=== PATIENT | female | born 1950 | race Caucasian/White ===

== ENCOUNTER 2019-11-29 16:25 | Inpatient (IN) | payer MEDICARE, SELFPAY ==
[2019-11-29] VITALS (9 sets, daily range): BP systolic 137–158; BP diastolic 81–104; PULSE 64–81; RESP 13–19; TEMP 36.4–36.9; O2SAT 92–97; BMI 39.6
--- NOTE | ~2019-11-29 | CT_ITS ---
EXAMINATION: CT cervical spine wo con DATE: 11/29/2019 17:41 INDICATION: Multiple sclerosis with fall and progressive leg weakness. TECHNIQUE: Computed tomography (CT) of the cervical spine was performed without intravenous contrast. Automated exposure control and iterative reconstruction technique were employed. The dose-length pro duct was 472.36 mGy-cm. COMPARISON: None FINDINGS: Any 5 degree cervical levoscoliosis. 1-2 mm anterolisthesis of C6 on C7. Vertebral body heights are n ormal. Disc heights are normal. Cervical soft tissues are unremarkable. Mastoid air cells, middle ear cavities and visualized portions of the paranasal sinuses, airway and apices of the lungs are clear. The following disc levels are specifically discussed: C2-C3: Disc is bulging. There is mild right uncovertebral joint osteoarthritis. There is moderate lef t and severe right facet joint osteoarthritis. There is minimal right neural foraminal stenosis. Ther e is mild central canal stenosis. C3-C4: Disc is bulging. There is mild bilateral uncovertebral joint osteoarthritis. There is moderate left and severe right facet joint osteoarthritis. There is no neural foraminal stenosis. There is mi ld central canal stenosis. C4-C5: Small posterior disc osteophyte complex. There is mild to moderate bilateral uncovertebral marv nt osteoarthritis. There is moderate left and severe right facet joint osteoarthritis. There is mild right neural foraminal stenosis. There is mild central canal stenosis. C5-C6: Disc is mildly bulging. There is mild right and minimal left uncovertebral joint osteoarthriti s. There is moderate left and severe right facet joint osteoarthritis. There is mild right neural for aminal stenosis. There is no central canal stenosis. C6-C7: Disc is bulging. There is mild bilateral uncovertebral joint osteoarthritis. There is moderate left and severe right facet joint osteoarthritis. There is no neural foraminal stenosis. There is mi nimal central canal stenosis. C7-T1: The disc does not extend beyond the endplate margin. There is no uncovertebral joint osteoarth ritis. There is moderate left and severe right facet joint osteoarthritis. There is mild right neural foraminal stenosis. There is no central canal stenosis. IMPRESSION: 1. 25 degrees cervical levoscoliosis with multilevel moderate left-sided and severe right-sided facet osteoarthritis. No acute osseous abnormality. Reviewed, dictated and finalized at location A. IMPRESSION: 1. 25 degrees cervical levoscoliosis with multilevel moderate left-sided and se negrito right-sided facet osteoarthritis. No acute osseous abnormality.
--- NOTE | ~2019-11-29 | CT_ITS ---
EXAMINATION: CT lumbar spine wo con DATE: 11/29/2019 17:41 INDICATION: Multiple sclerosis post fall with progressive leg weakness and bladder issues. TECHNIQUE: Computed tomography (CT) of the lumbar spine was performed without intravenous contrast. A utomated exposure control and iterative reconstruction technique were employed. The dose-length produ ct was 1171.38 mGy-cm. COMPARISON: Lumbar spine radiographs dated 01/17/2013 FINDINGS: 45 degree lumbar levorotoscoliosis measured between L1 and L4. L5 spondylolysis with bilateral pars i ntra-articular is defects and 7 mm anterolisthesis with respect to S1. Lumbar vertebral body heights are normal. No fracture. Severe right-sided disc height loss at L2-L3 and L3-L4. Mild right-sided dis c height loss at L1-L2. Mild disc height loss at L4-L5 and severe left-sided disc height loss at L5-S 1. There is a smaller caliber likely catheter for intrathecal pain pump which originates at the right side of the field of imaging and extends into the central canal between the left-sided lamina at L2- L3 and extending cephalad with distal tip at the level of T12. There is a larger caliber spinal stimu lator lead arising at the left side of the itsov-tt-mmei and dividing into 2 leads which enter the ce ntral canal between the spinous processes of T12-L1 and T11-T12 extends cephalad along the central ca nal beyond the cephalad margin of the [id number] which is at the T9-T10 disc space. Prominent dive rticulosis along the sigmoid and visualized descending colon without adjacent inflammatory change to suggest diverticulitis. Paravertebral soft tissues are unremarkable. The following disc levels are sp ecifically discussed: T12-L1: There is severe bilateral facet joint osteoarthritis. There is no neural foraminal stenosis. There is no central canal stenosis. L1-L2: Disc is bulging. There is moderate left and severe right facet joint osteoarthritis. There is mild right neural foraminal stenosis. There is mild central canal stenosis. L2-L3: Disc is bulging. There is altered left and moderate right facet joint osteoarthritis. There is moderate right neural foraminal stenosis. There is mild central canal stenosis. L3-L4: Disc is bulging. There is moderate left and severe right facet joint osteoarthritis. There is mild left and moderate right neural foraminal stenosis. There is moderate central canal stenosis. L4-L5: Disc is bulging. There is severe bilateral facet joint osteoarthritis. There is moderate bilat eral neural foraminal stenosis. There is moderate central canal stenosis. L5-S1: Disc is bulging. There is severe bilateral facet joint osteoarthritis along with bilateral par s interarticularis defects. There is moderate to severe bilateral neural foraminal stenosis. There is mild central canal stenosis. IMPRESSION: 1. 45 degrees lumbar levorotoscoliosis with severe spondylosis. 2. 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 Reviewed, dictated and finalized at location A. IMPRESSION: 1. 45 degrees lumbar levorotoscoliosis with severe spondylosis. 2. L5 spondylolysis with bilateral pars intra-articular is defects and 7 mm ant erolisthesis on S1.
--- NOTE | ~2019-11-29 | XR_ITS ---
EXAMINATION: XR chest 1V portable DATE: 11/29/2019 17:47 INDICATION: COPD presenting with shortness of breath post fall TECHNIQUE: frontal view of the chest was obtained. COMPARISON: None FINDINGS: Mild atelectasis at the right lung base. No pulmonary edema, pleural effusion or pneumothorax. Arch s ize is normal. Severe thoracic dextroscoliosis. Spinal stimulator leads project over the central christ l the lower thoracic spine. Prominent degenerative change at the bilateral shoulders including chroni c left rotator cuff tear. IMPRESSION: 1. Mild right basilar atelectasis. Reviewed, dictated and finalized at location A.
[2019-11-29 17:11] LABS: Add Urine Microscopic? NO; Appearance Urine Clear (Clear); Bilirubin Urine Negative (Negative); Blood Urine Negative (Negative); Color Urine Colorless (Yellow); Glucose Urine UA Negative (Negative); Ketones Urine Negative (Negative); Leukocyte Esterase Ur Negative LEU/UL (Negative); Nitrate Urine Negative (Negative); Protein Urine Negative (Negative); Specific Grav Ur 1.008 (1.001-1.035); Urobilinogen Urine Negative mg/dL (<2.0)
--- NOTE | 2019-11-29 17:16 | ED.GENADULT ---
HPI - General Adult General Chief complaint: Unspecified <NICOLE Tong Last Filed: 11/29/19 19:24> Stated complaint: hx MS/bladder issue, legs getting worker <NICOLE Tong Last Filed: 11/29/19 19:24> Time Seen by Provider: 11/29/19 17:09 <NICOLE Tong Last Filed: 11/29/19 19:24> Source: patient and family <NICOLE Tong Last Filed: 11/29/19 19:24> Mode of arrival: ambulatory <NICOLE Tong Last Filed: 11/29/19 19:24> Limitations: no limitations <NICOLE Tong Last Filed: 11/29/19 19:24> History of Present Illness HPI narrative: Patient is a 69-year-old female who presents to emergency department for evaluation of gradually worsening weakness and gait instability patient with history of MS lives by herself patient has had progressive weakness has been unable to partake in any of her normal therapy secondary to COVID patient fell 2 days ago secondary to gait instability patient was on the ground for a short period her family had to come and assist her patient on arrival notes aching pain to the lower back from the fall has history of chronic low back pain also noting mild pain of the neck denies any recent illness has history of MS and gait instability <NICOLE Tong Last Filed: 11/29/19 19:24> Related Data Home medications: Home Medications Medication Instructions Recorded Confirmed Metamucil 2 g PO DAILY 11/29/19 11/29/19 tydhl-q-[id number] [Beano] 800 unit PO DAILY PRN 11/29/19 11/29/19 dalfampridine [Ampyra] 10 mg PO BID 11/29/19 11/29/19 teriflunomide [Aubagio] 14 mg PO DAILY 11/29/19 11/29/19 <NICOLE Tong Last Filed: 11/29/19 19:24> Allergies/adverse reactions: Allergies Allergy/AdvReac Type Severity Reaction Status Date / Time No Known Allergies Allergy Unknown Verified 01/04/12 16:16 <NICOLE Tong Last Filed: 11/29/19 19:24> Review of Systems Review of Systems: All systems reviewed & are unremarkable except as noted in HPI and below <Tavo Allan PA-C - Last Filed: 11/29/19 19:24> PMFSH Past Medical History Medical History: Medical History Chronic back pain Diverticular disease Multiple sclerosis <Tavo Allan PA-C - Last Filed: 11/29/19 19:24> Surgical History Surgical History: Surgical History History of orthopedic surgery S/P insertion of spinal cord stimulator <Tavo Allan PA-C - Last Filed: 11/29/19 19:24> Family History Family History: Family History Mother Cancer Father Cancer Sibling Cancer Tuberculosis Enlarged heart <Tavo Allan PA-C - Last Filed: 11/29/19 19:24> Social History Social History: Social History Smoking packs per day: 0.5 Smoking cigarettes per day: 10.0 Smoking status: Former smoker Alcohol intake: former Substance use: never Last use: Years since last drink. No substance use. Gender identity (if verbalized by the patient): Female Spiritual care concerns: No <NICOLE Tong Last Filed: 11/29/19 19:24> Exam Narrative: Exam Narrative: GENERAL: Well-appearing, well-nourished, and in no acute distress. HEAD: Normocephalic, atraumatic. EYES: PERRLA and EOMI. ENT: Nares clear, no rhinorrhea or epistaxis. Mucous membranes moist. Oropharynx without tonsillar hypertrophy exudate or other lesions. NECK: Supple. No adenopathy or masses. CHEST: Clear to auscultation. No respiratory distress. No wheezes rales or rhonchi HEART: Regular rate and rhythm. No murmur heard. Normal peripheral pulses. ABDOMEN: Soft, nontender, nondistended EXTREMITIES: Patient with tenderness of the lumbar spine no deformities noted no midline cervical or
[2019-11-29 17:23] LABS: Basophils Absolute Auto 0.1 K/mm3 (0.0-0.1); Basophils Percent Auto 0.9 % (0.2-1.2); Eosinophils Absolute Auto 0.1 K/mm3 (0-0.3); Eosinophils Percent Auto 1.2 % (0-4.4); Hemoglobin 13.4 g/dL (12.0-15.0); Immature Granulocyte Absolute 0.02 K/mm3 (0.00-0.031); Immature Granulocyte Percent A 0.3 % (0-0.5); Lymphocytes Absolute Auto 0.82 K/mm3 (0.9-3.2); Lymphocytes Percent Auto 12.5 % (18.3-44.2); Mean Corpuscular HGB Conc 31.2 g/dl (32-36); Mean Corpuscular Hemoglobin 27.7 pg (26-34); Mean Platelet Volume 11.3 fl (7.4-10.4); Monocytes Absolute Auto 0.6 K/mm3 (0.1-0.6); Monocytes Percent Auto 9.5 % (2.6-8.5); Neutrophils Percent Auto 75.6 % (45.5-73.1); Platelet Count Result 243 k/mm3 (150-375); Red Blood Count 4.83 M/mm3 (4.2-5.4); Red Cell Distribution Width 15.1 % (11.5-14.5); White Blood Count 6.6 K/mm3 (4.5-10.0)
[2019-11-29 17:35] LABS: Alanine Aminotransferase 93 U/L (4-35); Albumin Level 4.2 g/dL (3.5-5.1); Alkaline Phosphatase 69 U/L (38-126); Anion Gap 7 mmol/L (8-16); Aspartate Amino Transferase 52 U/L (14-36); Bilirubin,Total 0.3 mg/dL (0.2-1.3); Blood Urea Nitrogen 15 mg/dL (7-17); Calcium 9.1 mg/dL (8.4-10.2); Carbon Dioxide 28 mmol/L (22-30); Chloride 103 mmol/L (98-107); Creatine Kinase 69 U/L (30-135); Estimated CRCL calculation 81 ml/min; Estimated Glomerular Filt Rate > 60; Glucose 94 mg/dL (65-105); Potassium 4.4 mmol/L (3.4-5.0); Sodium 138 mmol/L (137-145)
--- NOTE | 2019-11-29 19:37 | PM.IMHP ---
H&P: HPI History of Present Illness Date/Time: 11/29/19 19:37 Chief complaint: MS exacerbation Narrative: This is a pleasant 69 year old female with known multiple sclerosis who lives alone and presented to the hospital with a complaint of increased generalized weakness, increased falls, and difficulty with ADLs. The patient is known to have home health that comes for a few hours a day to help her. She has not been able to undergo therapy secondary to coronavirus. She has had increased difficulty transferring herself from the toilet to her electric scooter. Two days ago she fell and her daughter had to come over to help her off the ground. The patient has a history of long standing chronic back pain and has a spinal stimulator and a pain pump implanted. She normally sees Neurology at [facility]. She denies any fevers, chills, shortness of breath, cough, sore throat, chest pain, palpitations, headache, blurry vision, slurred speech, worsening numbness, tingling or focal weakness. She has also noticed over the past few days that she has had increased urination and feels like her bladder just isn't emptying. She has been experiencing urge incontinence and remarks that last night she laid in a dirty diaper all night as there was no one to change her. She denies being on any steroids recently. We have been asked to admit the patient to the hospital for possible placement. Review of Systems Review of Systems: All systems reviewed & are unremarkable except as noted in HPI and below PMFSH Past Medical History Medical History Chronic back pain Diverticular disease Multiple sclerosis Surgical History Surgical History History of orthopedic surgery S/P insertion of spinal cord stimulator Family History Family History Mother Cancer Father Cancer Sibling Cancer Tuberculosis Enlarged heart Social History Social History Smoking packs per day: 0.5 Smoking cigarettes per day: 10.0 Smoking status: Former smoker Alcohol intake: former Substance use: never Last use: Years since last drink. No substance use. Gender identity (if verbalized by the patient): Female Spiritual care concerns: No Meds Home Medications and Allergies Home Medications Medication Instructions Recorded Confirmed Type Metamucil 2 g PO DAILY 11/29/19 11/29/19 History lcjso-v-qfewcvqfugurt [Beano] 800 unit PO DAILY PRN 11/29/19 11/29/19 History dalfampridine [Ampyra] 10 mg PO BID 11/29/19 11/29/19 History teriflunomide [Aubagio] 14 mg PO DAILY 11/29/19 11/29/19 History Allergies Allergy/AdvReac Type Severity Reaction Status Date / Time No Known Allergies Allergy Unknown Verified 01/04/12 16:16 Vital Signs Vital Signs - 24 hr 11/29/19 16:33 11/29/19 17:55 11/29/19 17:57 Temperature 36.9 C Pulse Rate 67 64 72 Respiratory Rate 18 16 Blood Pressure 149/104 H 154/94 H Pulse Oximetry 95 97 11/29/19 18:52 Temperature Pulse Rate 81 Respiratory Rate 16 Blood Pressure 158/90 H Pulse Oximetry 97 Exam Const: General: cooperative, no acute distress, alert, awake and ill appearing chronically Nutritional Appearance: obese Orientation/consciousness: patient oriented x3 HENMT: Head: normal to inspection General nose exam: Normal external nose present Face and sinus: normal facial exam Mouth: Yes Normal oral and palatal mucosa present and Yes oropharynx normal Eyes: Pupils: Equal, round and reactive pupils present EOM: EOMs intact bilaterally Neck: Neck: supple and no JVD Thyroid: thyroid normal Lymphatic: lymphadenopathy not noted Resp: Effort & Inspection: normal respiratory effort Auscultation: clear to auscultation bilaterally Cardio: Rate: regular rate Rhythm: regular rhythm
--- NOTE | 2019-11-29 20:30 | ADMGEN ---
This patient, Marietta Pruett, was admitted to Medical Room 341-01. Patient/family oriented to hospital policies and general routines including ID bracelet, bed and alarms, visiting hours, pain management, procedures, bathroom and other care routines, personal items, smoking policy, room service/diet, and visiting hours. Valuables list has been completed. Information on how to activate the Rapid Response Team has been discussed. Patient/Family are encouraged to report perceived risks to care and to ask questions if they do not understand what they are told or what they should do.
[2019-11-29] MEDS: LACTATED RINGERS 1,000 ML 75 ML IV CONT (20:41)
[2019-11-29] MEDS: ENOXAPARIN 40 MG/0.4 ML SYRINGE SUB-Q (21:29)
[2019-11-29] MEDS: FAMOTIDINE 20 MG/2 ML VIAL IV PUSH (21:29)
[2019-11-30 04:57] VITALS: BP 132/59; PULSE 78; RESP 16; TEMP 36.4; O2SAT 99
[2019-11-30 05:26] LABS: Basophils Absolute Auto 0.1 K/mm3 (0.0-0.1); Basophils Percent Auto 1.8 % (0.2-1.2); Eosinophils Absolute Auto 0.1 K/mm3 (0-0.3); Eosinophils Percent Auto 2.3 % (0-4.4); Hematocrit 42.2 % (37.0-47.0); Hemoglobin 13.2 g/dL (12.0-15.0); Immature Granulocyte Absolute 0.01 K/mm3 (0.00-0.031); Immature Granulocyte Percent A 0.3 % (0-0.5); Lymphocytes Absolute Auto 0.74 K/mm3 (0.9-3.2); Lymphocytes Percent Auto 18.7 % (18.3-44.2); Mean Corpuscular HGB Conc 31.3 g/dl (32-36); Mean Corpuscular Volume 89.6 fl (80-100); Mean Platelet Volume 11.6 fl (7.4-10.4); Monocytes Absolute Auto 0.5 K/mm3 (0.1-0.6); Monocytes Percent Auto 13.7 % (2.6-8.5); Neutrophils Absolute Auto 2.5 K/mm3 (1.3-6.7); Neutrophils Percent Auto 63.2 % (45.5-73.1); Platelet Count Result 240 k/mm3 (150-375); Red Blood Count 4.71 M/mm3 (4.2-5.4); Red Cell Distribution Width 15.2 % (11.5-14.5)
[2019-11-30 07:58] LABS: Anion Gap 7 mmol/L (8-16); Blood Urea Nitrogen 14 mg/dL (7-17); Calcium 9.2 mg/dL (8.4-10.2); Carbon Dioxide 27 mmol/L (22-30); Chloride 102 mmol/L (98-107); Estimated CRCL calculation 106 ml/min; Estimated Glomerular Filt Rate > 60; Glucose 82 mg/dL (65-105); Potassium 4.4 mmol/L (3.4-5.0); Sodium 136 mmol/L (137-145)
--- NOTE | 2019-11-30 08:22 | PHAR ---
HOME MEDS VERIFIED = [facility] [id number] AMPYRA 10 MG TABS 1 TAB Q12HR. TABS ARE WHITE OVAL SHAPE WITH A 10 EMBOSSED ON TAB. [facility] RX [id number] AUBAGIO 14 MG TABS 1 TAB DAILY OTC BEANO OFF WHITE TAB EMBOSSED BEANO
[2019-11-30] MEDS: FAMOTIDINE 20 MG/2 ML VIAL IV PUSH ×2 (08:48→20:57)
--- NOTE | 2019-11-30 10:18 | WPDNEURCNPN ---
Assessment and Plan Assessment and plan (1) Multiple sclerosis: Code(s): G35 - Multiple sclerosis Status: Chronic (2) Generalized weakness: Code(s): R53.1 - Weakness Status: Acute Additional Plan continue the treatment as jaleel is the patientof Dr. Sunshine at [facility] or if she wants to come to the rehab for the ongoing therapy Consult date: 11/30/19 Time Seen: 10:32 HPI: Marietta Pruett is a 69 year old [facility] of increased generalized weakness recurrent falls and difficulties with ADL as patient is known to have MS and has been followed by the physician at [facility] she has been tried on multiple medication and most recently she has been taking medication Aubagio she lives alone. Two days ago she felt when her daughter came to help her overall. Over the last several days she has been experiencing increasing difficulties with the bladder patient has been admitted here for the possible placement Review of Systems Review of Systems: Narrative: all systems reviewed and are unremarkable except as noted in PMFSH Past Medical History Medical History Chronic back pain Diverticular disease Multiple sclerosis Surgical History Surgical History History of orthopedic surgery S/P insertion of spinal cord stimulator Family History Family History Mother Cancer Father Cancer Sibling Cancer Tuberculosis Enlarged heart Social History Social History Smoking packs per day: 0.5 Smoking cigarettes per day: 10.0 Smoking status: Former smoker Alcohol intake: former Substance use: never Last use: Years since last drink. No substance use. Gender identity (if verbalized by the patient): Female Spiritual care concerns: No Meds Home Medications and Allergies Home Medications Medication Instructions Recorded Confirmed Type Metamucil 2 g PO DAILY 11/29/19 11/29/19 History udtld-z-gowcmmkemqlvh [Beano] 800 unit PO DAILY PRN 11/29/19 11/29/19 History dalfampridine [Ampyra] 10 mg PO BID 11/29/19 11/29/19 History teriflunomide [Aubagio] 14 mg PO DAILY 11/29/19 11/29/19 History Allergies Allergy/AdvReac Type Severity Reaction Status Date / Time No Known Allergies Allergy Unknown Verified 01/04/12 16:16 Vital Signs Vital Signs - 24 hr 11/29/19 16:33 11/29/19 17:55 11/29/19 17:57 Temperature 36.9 C Pulse Rate 67 64 72 Respiratory Rate 18 16 Blood Pressure 149/104 H 154/94 H Pulse Oximetry 95 97 11/29/19 18:31 11/29/19 18:46 11/29/19 18:52 Temperature Pulse Rate 68 70 81 Respiratory Rate 13 13 16 Blood Pressure 137/86 158/90 H 158/90 H Pulse Oximetry 97 97 97 11/29/19 19:01 11/29/19 20:15 11/29/19 20:37 Temperature 36.4 C Pulse Rate 70 78 64 Respiratory Rate 14 19 16 Blood Pressure 140/89 154/81 H 153/86 H Pulse Oximetry 96 96 92 11/30/19 04:57 Temperature 36.4 C L Pulse Rate 78 Respiratory Rate 16 Blood Pressure 132/59 L Pulse Oximetry 99 Exam Narrative: Exam Narrative: examination today reveals her to be awake alert cooperative with full conversation normally speech without evidence of dysphagia or dysarthria oriented x3 head normocephalic with no cranial bruit your nose throat examination normal neck is supple with no cervical bruit no thyromegaly no lymphadenopathy heart regular lungs clear to auscultation with no crepitations or rhonchi abdomen soft with no organomegaly neurologically she is awake alert oriented x3 as mentioned above is speech is not dysphasic not dysarthric pupils round regular chakraborty of vision for confrontation extraocular movements are full with no nystagmus facial sensation is intact face symmetrical tongue midline uvula midli
--- NOTE | 2019-11-30 13:40 | PC.NURSE ---
POST VOID VLADDER SCAN 193 CALLED TO GUICHO JACQUES
--- NOTE | 2019-11-30 13:49 | PM.IMPN ---
Progress Note: A&P Assessment and Plan (1) Generalized weakness: Code(s): R53.1 - Weakness Status: Acute Assessment and Plan: -------Most likely secondary to deconditioning there may be an acute component due to a flare as she is also having bladder spasms. I have spoke with Neurology who recommends 1 g of Solu-Medrol given over 24 hours x3 doses. I also believe the patient would benefit from TRC. Continue PT and OT (2) Multiple sclerosis: Code(s): G35 - Multiple sclerosis Status: Chronic Assessment and Plan: -----Continue home meds and steroids at this time (3) Chronic back pain: Qualifiers: Back pain location: back pain in unspecified location Back pain laterality: unspecified Qualified Code(s): M54.9 - Dorsalgia, unspecified; G89.29 - Other chronic pain Code(s): M54.9 - Dorsalgia, unspecified; G89.29 - Other chronic pain Status: Chronic Assessment and Plan: -----Continue pain pump. Additional Plan Time Spent With Patient Time with patient: 25 - 35 minutes Subjective Date/time seen: 11/30/19 13:50 Interval history: Pt is a 69-year-old female here for worsening weakness. Patient states that she has MS and she usually works out 3 times a week in water at her gym. She has been a unable to do this since COVID and she has been increasingly weak. Lately, she says when she stands her legs give out. She has also noticed her bladder spasming and she has been urinating a lot. This is unlike her and a new symptom. She has been taking her home meds routinely. She denies chest pain, shortness of breath, fevers, chills, abdominal pain, diarrhea or constipation Review of Systems Review of Systems: All systems reviewed & are unremarkable except as noted in HPI and below Exam Narrative: Exam Narrative: General: Well-developed well-nourished patient resting comfortably in bed in no acute distress HEENT: normocephalic Neck: supple Neuro: Alert and oriented x4. Hyper-spasmodic lower extremities. Cranial nerves 2-12 intact. CV:RRR Resp:CTA Abd: Soft, non distended. No pain to palpation. Positive bowel sounds Extremities: No swelling, erythema, or pain to palpation. Objective Data Vital Signs Vital Signs: Vital Signs - 24 hr 11/29/19 16:33 11/29/19 17:55 11/29/19 17:57 Temperature 98.4 F Pulse Rate 67 64 72 Respiratory Rate 18 16 Blood Pressure 149/104 H 154/94 H Pulse Oximetry 95 97 11/29/19 18:31 11/29/19 18:46 11/29/19 18:52 Temperature Pulse Rate 68 70 81 Respiratory Rate 13 13 16 Blood Pressure 137/86 158/90 H 158/90 H Pulse Oximetry 97 97 97 11/29/19 19:01 11/29/19 20:15 11/29/19 20:37 Temperature 97.6 F Pulse Rate 70 78 64 Respiratory Rate 14 19 16 Blood Pressure 140/89 154/81 H 153/86 H Pulse Oximetry 96 96 92 11/30/19 04:57 Temperature 97.5 F L Pulse Rate 78 Respiratory Rate 16 Blood Pressure 132/59 L Pulse Oximetry 99 Intake/Output Intake/Output: Intake & Output 11/27/19 11/28/19 11/29/19 11/30/19 23:59 23:59 23:59 23:59 Intake Total 100 1000 Output Total 1400 0 Balance -1300 -1050 Meds/Results Medications: Active Medications Generic Name Dose Route Start Last Admin Trade Name Germanq PRN Reason Stop Dose Admin Enoxaparin Sodium 40 mg 11/29/19 21:00 11/29/19 21:29 Lovenox SUB-Q 40 mg HS CELE Administration Famotidine 20 mg 11/29/19 21:00 11/30/19 08:48 Pepcid Iv IV PUSH 20 mg Q12HR CELE Administration Acetaminophen 1,000 mg in 100 mls @ 400 mls/hr 11/29/19 19:25 11/30/19 09:40 Ofirmev 1,000 Mg Ivpb IVPB 11/30/19 19:26 Infused Q6H PRN Infusion Mild Pain (1-3) or Fever Methylprednisolone Sodium 100 mls @ 200 mls/hr 12/01/19 09:00 Succinate 1,000 mg/ Dextrose IVPB QAM CELE Ondansetron HCl 4 mg 11/29/19 19:25 Zofran Inj IV PUSH Q4H PRN Nausea Radiology Results: ITS Impressions
[2019-11-30 14:00] VITALS: BP 113/62; PULSE 74; RESP 18; TEMP 36.4; O2SAT 97
[2019-11-30] MEDS: methylPREDNISolone SOD SUCC 1,000 MG in DEXTROSE 5% 100 ML 4.2 MG IVPB (15:22)
[2019-11-30 16:25] LABS: Glucose Point of Care 91 (65-105)
[2019-11-30 20:15] VITALS: PULSE 53; RESP 18; O2SAT 98
[2019-11-30] MEDS: ENOXAPARIN 40 MG/0.4 ML SYRINGE SUB-Q (20:57)
[2019-11-30 22:00] VITALS: BP 138/59; PULSE 53; RESP 18; TEMP 36.5; O2SAT 98
[2019-11-30 23:32] LABS: Glucose Point of Care 170 (65-105)
[2019-12-01 06:00] VITALS: BP 114/56; PULSE 77; RESP 18; TEMP 36.9; O2SAT 93
[2019-12-01 06:14] LABS: Alanine Aminotransferase 60 U/L (4-35); Alkaline Phosphatase 53 U/L (38-126); Anion Gap 7 mmol/L (8-16); Aspartate Amino Transferase 31 U/L (14-36); Bilirubin,Total 0.3 mg/dL (0.2-1.3); Blood Urea Nitrogen 18 mg/dL (7-17); CRP 0.6 mg/dL (<1.0); Calcium 9.1 mg/dL (8.4-10.2); Carbon Dioxide 27 mmol/L (22-30); Chloride 101 mmol/L (98-107); Estimated CRCL calculation 106 ml/min; Estimated Glomerular Filt Rate > 60; Glucose 143 mg/dL (65-105); Potassium 4.1 mmol/L (3.4-5.0); Sodium 135 mmol/L (137-145)
[2019-12-01 08:00] LABS: Glucose Point of Care 156 (65-105)
[2019-12-01] MEDS: FAMOTIDINE 20 MG/2 ML VIAL IV PUSH ×2 (08:15→20:02)
[2019-12-01] MEDS: PANTOPRAZOLE SOD SESQUIHYDRATE 20 MG TAB PO (08:15)
--- NOTE | 2019-12-01 10:59 | WPDNEUROPN ---
Progress Note: A&P Assessment and Plan (1) Chronic back pain: Qualifiers: Back pain location: back pain in unspecified location Back pain laterality: unspecified Qualified Code(s): M54.9 - Dorsalgia, unspecified; G89.29 - Other chronic pain Code(s): M54.9 - Dorsalgia, unspecified; G89.29 - Other chronic pain Status: Chronic (2) Multiple sclerosis: Code(s): G35 - Multiple sclerosis Status: Chronic (3) Generalized weakness: Code(s): R53.1 - Weakness Status: Acute Additional Plan discussed with her about the continuation of the intravenous Medrol and then hopefully transfer her to the rehab floor at [facility] no other new problems Review of Systems Review of Systems: All systems reviewed & are unremarkable except as noted in HPI and below Exam Narrative: Exam Narrative: examination reveals her to be awake alert cooperative in no obvious acute distress able to be involved in the personal hygiene while sitting in the wheelchair his speech is not dysphasic not dysarthric follows [place] instruction according and also instruct involved in her care asking the questions Objective Data Vital Signs Vital Signs: Vital Signs - 24 hr 11/30/19 14:00 11/30/19 20:15 11/30/19 22:00 Temperature 36.4 C 36.5 C Pulse Rate 74 53 L 53 L Respiratory Rate 18 18 18 Blood Pressure 113/62 138/59 L Pulse Oximetry 97 98 98 12/01/19 06:00 Temperature 36.9 C Pulse Rate 77 Respiratory Rate 18 Blood Pressure 114/56 L Pulse Oximetry 93 Intake/Output Intake/Output: Intake & Output 11/28/19 11/29/19 11/30/19 12/01/19 23:59 23:59 23:59 23:59 Intake Total 100 1480 680 Output Total 1400 2450 850 Balance -1300 -180 -170 Meds/Results Medications: Active Medications Generic Name Dose Route Start Last Admin Trade Name Freq PRN Reason Stop Dose Admin Dextrose 12.5 gm 11/30/19 13:54 Dextrose 50% Syringe IV PUSH PRN PRN Hypoglycemia Protocol Enoxaparin Sodium 40 mg 11/29/19 21:00 11/30/19 20:57 Lovenox SUB-Q 40 mg HS CELE Administration Famotidine 20 mg 11/29/19 21:00 08/20/20 08:15 Pepcid Iv IV PUSH 20 mg Q12HR CELE Administration Glucagon 1 mg 11/30/19 13:54 Glucagon For Inj IM PRN PRN Hypoglycemia Protocol Glucose 15 gm 11/30/19 13:54 Glutose 15 PO PRN PRN Hypoglycemia Protocol Methylprednisolone Sodium 100 mls @ 4.167 mls/hr 11/30/19 14:30 11/30/19 15:22 Succinate 1,000 mg/ Dextrose IVPB 12/03/19 14:29 4.2 mls/hr Q24H CELE Administration Dextrose 1,000 mls @ 100 mls/hr 11/30/19 13:54 Dextrose 5% 1,000 Ml IVPB PRN PRN Hypoglycemia Protocol Insulin Aspart 2 - 5 units 11/30/19 17:00 12/01/19 08:10 Novolog SUB-Q Not Given TIDWM CELE Protocol Ondansetron HCl 4 mg 11/29/19 19:25 Zofran Inj IV PUSH Q4H PRN Nausea Pantoprazole Sodium 20 mg 12/01/19 09:00 12/01/19 08:15 Protonix PO 20 mg QAM CELE Administration Radiology Results: ITS Impressions Cervical Spine CT 11/29/19 17:47 IMPRESSION: 1. 25 degrees cervical levoscoliosis with multilevel moderate left-sided and severe right-sided facet osteoarthritis. No acute osseous abnormality. Chest X-Ray 11/29/19 17:55 IMPRESSION: 1. Mild right basilar atelectasis. Lumbar Spine CT 11/29/19 17:59 IMPRESSION: 1. 45 degrees lumbar levorotoscoliosis with severe spondylosis. 2. 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 Labs Labs: Laboratory Results - last 24 hr 11/30/19 11/30/19 12/01/19 16:18 20:58 05:21 Sodium 135 L Potassium 4.1 Chloride 101 Carbon Dioxide 27 Anion Gap 7 L BUN 18 H Creatinine 0.40 L Estim Creat Clear Calc 106 Estimated GFR > 60 Glucose 143 H POC Capillary Glucose 91 170 H Calcium 9.1 Total Bilirubin 0.3 AST 31 ALT 60 H
[2019-12-01 11:45] LABS: Glucose Point of Care 214 (65-105)
[2019-12-01] MEDS: INSULIN ASPART (*BKC) 100 UNITS/ML SUB-Q (11:55)
--- NOTE | 2019-12-01 13:48 | PM.IMPN ---
Progress Note: A&P Assessment and Plan (1) Generalized weakness: Code(s): R53.1 - Weakness Status: Acute Assessment and Plan: -------Most likely secondary to deconditioning but also there may be an acute component due to a flare as she is also having bladder spasms. This has improved with steroids but she is still feeling weak. I also believe the patient would benefit from [facility]. Continue PT and OT (2) Multiple sclerosis: Code(s): G35 - Multiple sclerosis Status: Chronic Assessment and Plan: -----Continue home meds and steroids at this time. Her liver enzymes were slightly elevated. She says her doctor watchers this closely due to her MS medications. (3) Chronic back pain: Qualifiers: Back pain location: back pain in unspecified location Back pain laterality: unspecified Qualified Code(s): M54.9 - Dorsalgia, unspecified; G89.29 - Other chronic pain Code(s): M54.9 - Dorsalgia, unspecified; G89.29 - Other chronic pain Status: Chronic Assessment and Plan: -----Continue pain pump. Additional Plan Subjective Date/time seen: 12/01/19 13:48 Interval history: Pt is a 69-year-old female here for worsening weakness. Patient was seen today and states she is doing little better today than she was yesterday. She has been up in her wheelchair which makes her feel better. She is having less problems with her bladder and is urinating normally. She still feels weak and really unable to support herself when she stands up. This has been progressive since the pandemic. She is a bit constipated request fiber and milk of Mag. She is eating and drinking well. No chest pain, shortness breath, cough, fevers, chills and has a little bit of leg swelling because she is not wearing her compression socks Exam Narrative: Exam Narrative: General: Well-developed well-nourished patient resting comfortably in the wheelchair in no acute distress HEENT: normocephalic Neck: supple Neuro: Alert and oriented x4. Hyper-spasmodic lower extremities. Cranial nerves 2-12 intact. CV:RRR Resp:CTA Abd: Soft, non distended. No pain to palpation. Positive bowel sounds Extremities: No swelling, erythema, or pain to palpation. Objective Data Vital Signs Vital Signs: Vital Signs - 24 hr 11/30/19 14:00 11/30/19 20:15 11/30/19 22:00 Temperature 97.6 F 97.7 F Pulse Rate 74 53 L 53 L Respiratory Rate 18 18 18 Blood Pressure 113/62 138/59 L Pulse Oximetry 97 98 98 12/01/19 06:00 Temperature 98.4 F Pulse Rate 77 Respiratory Rate 18 Blood Pressure 114/56 L Pulse Oximetry 93 Intake/Output Intake/Output: Intake & Output 11/28/19 11/29/19 11/30/19 12/01/19 23:59 23:59 23:59 23:59 Intake Total 100 1480 680 Output Total 1400 4580 850 Balance -2216 -486 -131 Meds/Results Medications: Active Medications Generic Name Dose Route Start Last Admin Trade Name Freq PRN Reason Stop Dose Admin Dextrose 12.5 gm 11/30/19 13:54 Dextrose 50% Syringe IV PUSH PRN PRN Hypoglycemia Protocol Enoxaparin Sodium 40 mg 11/29/19 21:00 11/30/19 20:57 Lovenox SUB-Q 40 mg HS CELE Administration Famotidine 20 mg 11/29/19 21:00 12/01/19 08:15 Pepcid Iv IV PUSH 20 mg Q12HR CELE Administration Glucagon 1 mg 11/30/19 13:54 Glucagon For Inj IM PRN PRN Hypoglycemia Protocol Glucose 15 gm 11/30/19 13:54 Glutose 15 PO PRN PRN Hypoglycemia Protocol Methylprednisolone Sodium 100 mls @ 4.167 mls/hr 11/30/19 14:30 11/30/19 15:22 Succinate 1,000 mg/ Dextrose IVPB 12/03/19 14:29 4.2 mls/hr Q24H CELE Administration Dextrose 1,000 mls @ 100 mls/hr 11/30/19 13:54 Dextrose 5% 1,000 Ml IVPB PRN PRN Hypoglycemia Protocol Insulin Aspart 2 - 5 units 11/30/19 17:00 12/01/19 11:55 Novolog SUB-Q 2 units TIDWM CELE Administration Protocol Ondansetron
[2019-12-01 13:49] VITALS: BP 135/72; PULSE 86; RESP 18; TEMP 36.5; O2SAT 94
[2019-12-01] MEDS: MAGNESIUM HYDROXIDE SUSP 30 ML UDC PO (15:31)
[2019-12-01] MEDS: methylPREDNISolone SOD SUCC 1,000 MG in DEXTROSE 5% 100 ML 4.2 MG IVPB (15:34)
[2019-12-01 17:03] LABS: Glucose Point of Care 146 (65-105)
[2019-12-01 19:52] LABS: Glucose Point of Care 180 (65-105)
[2019-12-01 20:02] VITALS: BP 160/81; PULSE 77; RESP 18; TEMP 37; O2SAT 94
[2019-12-01] MEDS: ENOXAPARIN 40 MG/0.4 ML SYRINGE SUB-Q (20:03)
[2019-12-01] MEDS: PSYLLIUM POWDER PACKET 1 PACKET PO (20:03)
[2019-12-02 05:29] LABS: Hematocrit 38.8 % (37.0-47.0); Hemoglobin 12.4 g/dL (12.0-15.0); Mean Corpuscular Hemoglobin 27.7 pg (26-34); Mean Corpuscular Volume 86.8 fl (80-100); Mean Platelet Volume 11.8 fl (7.4-10.4); Platelet Count Result 243 k/mm3 (150-375); Red Blood Count 4.47 M/mm3 (4.2-5.4); Red Cell Distribution Width 14.6 % (11.5-14.5); White Blood Count 7.9 K/mm3 (4.5-10.0)
[2019-12-02 05:44] LABS: Alanine Aminotransferase 45 U/L (4-35); Albumin Level 3.8 g/dL (3.5-5.1); Alkaline Phosphatase 57 U/L (38-126); Anion Gap 7 mmol/L (8-16); Aspartate Amino Transferase 20 U/L (14-36); Bilirubin,Total 0.3 mg/dL (0.2-1.3); Blood Urea Nitrogen 28 mg/dL (7-17); Calcium 9.1 mg/dL (8.4-10.2); Carbon Dioxide 25 mmol/L (22-30); Chloride 101 mmol/L (98-107); Estimated CRCL calculation 87 ml/min; Estimated Glomerular Filt Rate > 60; Glucose 146 mg/dL (65-105); Magnesium 2.4 mg/dL (1.6-2.3); Potassium 4.5 mmol/L (3.4-5.0); Sodium 133 mmol/L (137-145)
[2019-12-02 06:13] VITALS: BP 130/64; PULSE 67; RESP 18; TEMP 36.1; O2SAT 94
[2019-12-02 07:49] LABS: Glucose Point of Care 148 (65-105)
--- NOTE | 2019-12-02 09:01 | PCPTNOTE ---
Attempted to see Pt at 8:55, Pt declined treatment at this time due to waiting for her morning medication. Pt stated I can't do anything until I get my medication. I am like a limp noodle until I get my medication for my MS. Reassured Pt we could attempt therapy again and her Nurse is coming with her morning meds. RN came in to distribute medication upon therapy leaving room. Encouraged Pt her nurse is aware and trying her best to take care of all of her patients to the best of her ability. Will attempt therapy again.
[2019-12-02] MEDS: FAMOTIDINE 20 MG/2 ML VIAL IV PUSH ×2 (09:02→22:39)
[2019-12-02] MEDS: PSYLLIUM POWDER PACKET 1 PACKET PO (09:02)
[2019-12-02] MEDS: PANTOPRAZOLE SOD SESQUIHYDRATE 20 MG TAB PO (09:02)
[2019-12-02 11:42] LABS: Glucose Point of Care 200 (65-105)
[2019-12-02 12:41] LABS: SARS-CoV-2 RNA PCR Negative
[2019-12-02 14:00] VITALS: BP 135/69; PULSE 82; RESP 14; TEMP 36.3; O2SAT 94
[2019-12-02] MEDS: methylPREDNISolone SOD SUCC 1,000 MG in DEXTROSE 5% 100 ML 4.2 MG IVPB (14:19)
--- NOTE | 2019-12-02 16:26 | PM.IMPN ---
Progress Note: A&P Assessment and Plan (1) Generalized weakness: Code(s): R53.1 - Weakness Status: Acute Assessment and Plan: -------Most likely secondary to deconditioning but also there may be an acute component due to a flare as she is also having bladder spasms. This has improved with steroids but she is still feeling weak. Continue PT and OT. Likely d/c to SNF tomorrow once steroids are finished. LE swelling likely d/t steroids and I suspect this will improve when they are finished and now that she is wearing compression stockings. She sits with her legs dependent most of the time. DVT felt to be less likely since it is bilateral and started after hospitalization, shes on lovenox, and is not having pain in the area. (2) Multiple sclerosis: Code(s): G35 - Multiple sclerosis Status: Chronic Assessment and Plan: -----Continue home meds and steroids at this time. Her liver enzymes were slightly elevated but have improved. She says her doctor watchers this closely due to her MS medications. (3) Chronic back pain: Qualifiers: Back pain location: back pain in unspecified location Back pain laterality: unspecified Qualified Code(s): M54.9 - Dorsalgia, unspecified; G89.29 - Other chronic pain Code(s): M54.9 - Dorsalgia, unspecified; G89.29 - Other chronic pain Status: Chronic Assessment and Plan: -----Continue pain pump. (4) Constipation: Code(s): K59.00 - Constipation, unspecified Status: Acute Assessment and Plan: -----she has tried milk of mag which usually helps with her constipation. Will try mineral oil and suppository if needed Additional Plan Subjective Date/time seen: 12/02/19 16:26 Interval history: Pt is a 69-year-old female here for worsening weakness. Patient was seen today and still feels weak. She is still not able to hold herself up to stand. She has noticed her legs and feet are swelling more bilaterally. She usually wears compression hose at home and she has started wearing the yaniv hose yesterday here. She still has not had a BM which is unusual for her. She is eating and drinking well. No chest pain, shortness breath, cough, fevers, and chills Exam Narrative: Exam Narrative: General: Well-developed well-nourished patient resting comfortably in the wheelchair in no acute distress HEENT: normocephalic Neck: supple Neuro: Alert and oriented x4. Cranial nerves 2-12 intact. CV:RRR Resp:CTA Abd: Soft, non distended. No pain to palpation. Positive bowel sounds Extremities: non pitting swelling to the LE bilaterally. negative blue signs. Objective Data Vital Signs Vital Signs: Vital Signs - 24 hr 12/01/19 20:02 12/02/19 06:13 12/02/19 14:00 Temperature 98.6 F 97 F L 97.4 F L Pulse Rate 77 67 82 Respiratory Rate 18 18 14 Blood Pressure 160/81 H 130/64 135/69 Pulse Oximetry 94 94 94 Intake/Output Intake/Output: Intake & Output 11/29/19 11/30/19 12/01/19 12/02/19 23:59 23:59 23:59 23:59 Intake Total 100 1480 2460 2621 Output Total 1400 2450 850 Balance -1300 -970 1610 2621 Meds/Results Medications: Active Medications Generic Name Dose Route Start Last Admin Trade Name Freq PRN Reason Stop Dose Admin Acetaminophen 650 mg 12/01/19 16:51 Tylenol Tablet PO Q6H PRN Mild Pain (1-3) or Fever Dextrose 12.5 gm 11/30/19 13:54 Dextrose 50% Syringe IV PUSH PRN PRN Hypoglycemia Protocol Enoxaparin Sodium 40 mg 11/29/19 21:00 12/01/19 20:03 Lovenox SUB-Q 40 mg HS CELE Administration Famotidine 20 mg 11/29/19 21:00 12/02/19 09:02 Pepcid Iv IV PUSH 20 mg Q12HR CELE Administration Glucagon 1 mg 11/30/19 13:54 Glucagon For Inj IM PRN PRN Hypoglycemia Protocol Glucose 15 gm 11/30/19 13:54 Glutose 15 PO PRN PRN Hypoglycemia Protocol Methylprednisolone Sodium 100 mls @ 4.16
[2019-12-02 16:56] LABS: Glucose Point of Care 207 (65-105)
[2019-12-02] MEDS: BISACODYL 10 MG SUPPOSITORY RECTAL (18:00)
[2019-12-02] MEDS: MINERAL OIL 30 ML UDC PO (18:00)
[2019-12-02] MEDS: INSULIN ASPART (*BKC) 100 UNITS/ML SUB-Q (18:01)
[2019-12-02 21:10] VITALS: BP 139/65; PULSE 83; RESP 18; TEMP 37; O2SAT 96
[2019-12-02] MEDS: ENOXAPARIN 40 MG/0.4 ML SYRINGE SUB-Q (22:39)
[2019-12-03 05:05] VITALS: BP 120/65; PULSE 65; RESP 18; TEMP 36.2; O2SAT 93
[2019-12-03 06:49] LABS: Anion Gap 6 mmol/L (8-16); Blood Urea Nitrogen 29 mg/dL (7-17); Calcium 8.7 mg/dL (8.4-10.2); Carbon Dioxide 29 mmol/L (22-30); Chloride 100 mmol/L (98-107); Estimated CRCL calculation 106 ml/min; Estimated Glomerular Filt Rate > 60; Glucose 135 mg/dL (65-105); Potassium 4.3 mmol/L (3.4-5.0); Sodium 135 mmol/L (137-145)
[2019-12-03 07:59] LABS: Glucose Point of Care 186 (65-105)
[2019-12-03] MEDS: PSYLLIUM POWDER PACKET 1 PACKET PO ×2 (09:19→23:05)
[2019-12-03] MEDS: FAMOTIDINE 20 MG/2 ML VIAL IV PUSH ×2 (09:19→23:05)
[2019-12-03] MEDS: PANTOPRAZOLE SOD SESQUIHYDRATE 20 MG TAB PO (09:19)
[2019-12-03] MEDS: MAGNESIUM HYDROXIDE SUSP 30 ML UDC PO (09:20)
[2019-12-03 09:27] VITALS: RESP 18; O2SAT 94
--- NOTE | 2019-12-03 10:10 | PM.DS ---
DS: Admitting Diagnosis Admitting Diagnosis Admitting Diagnosis: MS exacerbation DS: Discharge Diagnosis Discharge Diagnosis (1) Discharge planning issues: Code(s): Z02.9 - Encounter for administrative examinations, unspecified Status: Acute Assessment and Plan: -----patient was officially discharged 12/02 but could not get a ride to the facility until 12/03. She was not seen on 12/03 (2) Generalized weakness: Code(s): R53.1 - Weakness Status: Acute Assessment and Plan: -------Most likely secondary to deconditioning but also there may be an acute component due to a flare as she was also having bladder spasms. This has improved with steroids but she is still feeling weak. Continue PT and OT. d/c to SNF. Pt unable to go to [facility]. LE swelling likely d/t steroids and I suspect this will improve when they are finished and now that she is wearing compression stockings. She sits with her legs dependent most of the time. DVT felt to be less likely since it is bilateral and started after hospitalization, shes was on lovenox, and is not having pain in the area. (3) Multiple sclerosis: Code(s): G35 - Multiple sclerosis Status: Chronic Assessment and Plan: -----Continue home meds and steroid taper. Her liver enzymes were slightly elevated but have improved. She says her doctor watchers this closely due to her MS medications. (4) Chronic back pain: Qualifiers: Back pain location: back pain in unspecified location Back pain laterality: unspecified Qualified Code(s): M54.9 - Dorsalgia, unspecified; G89.29 - Other chronic pain Code(s): M54.9 - Dorsalgia, unspecified; G89.29 - Other chronic pain Status: Chronic Assessment and Plan: -----Continue pain pump. (5) Constipation: Code(s): K59.00 - Constipation, unspecified Status: Acute Assessment and Plan: -----Improved. Continue milk of mag DS: Summary Hospital Course Reason for hospitalization: Generalized weakness, MS Hospital Course: Patient is a 69-year-old female who presented emergency room for generalized weakness that has been progressive for weeks. Vitals in the ER were temperature 98.4?, pulse 67, respiratory rate 18, blood pressure 149/104, pulse ox 95 on room air. Original white blood cell count 4.0, hemoglobin 13.2, hematocrit 42.2, platelets 240. BMP within normal limits. Patient was admitted to the hospitalist service and she continued to be weak and started having bladder spasms/incontinence. Neurology was consulted in suspected AA MS flare so she was given 3 days IV 1 g Solu-Medrol. This improved her symptoms but she was still significantly weak. She was no longer having problems with her bladder. She did start having swelling in her lower extremities during her stay but was bilaterally and thought to be due to steroids and not wearing her compression hose. Please see above. It was suspected that this is an acute on chronic process since she has not been able to exercise since the COVID-19 pandemic since she usually goes to a gym and swims in the pool. Overall, the patient had improvement but would benefit from SNF to avoid being bedbound. She was educated about the worrisome signs and symptoms to come back to emergency room for was discharged stable condition. She is to follow-up with her MS doctor Status at Discharge Functional status at discharge: wheelchair bound Overall status at discharge: patient is progressing back to baseline Time Spent with Patient Time attestation: Total time spent providing and/or coordinating discharge services:34 min Time spent: Greater than 30 minutes Exam Narrative: Exam Narrative: General: Well-developed well-nourished patient resting comfortably in the wheelchair in no acute distress HEENT: normocephalic Neck: supple Neuro: Alert and oriented x4. Cranial nerves 2-12 intact. CV:RRR Resp:CTA Abd:
[2019-12-03 11:54] LABS: Glucose Point of Care 167 (65-105)
--- NOTE | 2019-12-03 12:08 | PM.IMPN ---
Progress Note: A&P Assessment and Plan (1) Discharge planning issues: Code(s): Z02.9 - Encounter for administrative examinations, unspecified Status: Acute Assessment and Plan: -----Pt is unsafe to go home due to her MS and decompensation over the last few months. She will need SNF therapy to help improve her functional status and to avoid becoming bed bound as she is high risk for her. It is imperative that she receive therapy. Waiting on insurance. (2) Generalized weakness: Code(s): R53.1 - Weakness Status: Acute Assessment and Plan: -------Most likely secondary to deconditioning but also there may be an acute component due to a flare as she was also having bladder spasms. This has improved with steroids but she is still feeling weak. Continue PT and OT. Plan to d/c to SNF. Pt unable to go to [facility]. LE swelling likely d/t steroids and I suspect this will improve when they are finished and now that she is wearing compression stockings. She sits with her legs dependent most of the time. DVT felt to be less likely since it is bilateral and started after hospitalization, shes on lovenox, and is not having pain in the area. (3) Multiple sclerosis: Code(s): G35 - Multiple sclerosis Status: Chronic Assessment and Plan: -----Continue home meds and steroids at this time. Her liver enzymes were slightly elevated but have improved. She says her doctor watchers this closely due to her MS medications. (4) Chronic back pain: Qualifiers: Back pain location: back pain in unspecified location Back pain laterality: unspecified Qualified Code(s): M54.9 - Dorsalgia, unspecified; G89.29 - Other chronic pain Code(s): M54.9 - Dorsalgia, unspecified; G89.29 - Other chronic pain Status: Chronic Assessment and Plan: -----Continue pain pump. (5) Constipation: Code(s): K59.00 - Constipation, unspecified Status: Acute Assessment and Plan: -----Improved. Continue milk of mag Additional Plan Subjective Date/time seen: 12/03/19 12:08 Interval history: Pt is a 69-year-old female here for worsening weakness. Patient was seen today and has no complaints. She had a BM overnight. She still feels very weak. She is worried that she isn't getting her meds at the right times preventing her from being able to do well in therapy . She denies CP, SOB, fevers, chills, nausea, vomiting or diarrhea. She states her feet are still swollen and that the compression hose is helping a little. Exam Narrative: Exam Narrative: General: Well-developed well-nourished patient resting comfortably in the wheelchair in no acute distress HEENT: normocephalic Neck: supple Neuro: Alert and oriented x4. Cranial nerves 2-12 intact. CV:RRR Resp:CTA Abd: Soft, non distended. No pain to palpation. Positive bowel sounds Extremities: non pitting swelling to the LE bilaterally. negative blue signs. Objective Data Vital Signs Vital Signs: Vital Signs - 24 hr 12/02/19 14:00 12/02/19 21:10 12/03/19 05:05 Temperature 97.4 F L 98.6 F 97.1 F L Pulse Rate 82 83 65 Respiratory Rate 14 18 18 Blood Pressure 135/69 139/65 120/65 Pulse Oximetry 94 96 93 12/03/19 09:27 Temperature Pulse Rate Respiratory Rate 18 Blood Pressure Pulse Oximetry 94 Intake/Output Intake/Output: Intake & Output 11/30/19 12/01/19 12/02/19 12/03/19 23:59 23:59 23:59 23:59 Intake Total 1480 2460 3701 1140 Output Total 2450 850 600 Balance -970 1610 3101 1140 Meds/Results Medications: Active Medications Generic Name Dose Route Start Last Admin Trade Name Freq PRN Reason Stop Dose Admin Acetaminophen 650 mg 12/01/19 16:51 Tylenol Tablet PO Q6H PRN Mild Pain (1-3) or Fever Dextrose 12.5 gm 11/30/19 13:54 Dextrose 50% Syringe IV PUSH PRN PRN Hypoglycemia Protocol Enoxaparin Sodium 40 mg 11/29/19 2
[2019-12-03 14:00] VITALS: BP 142/92; PULSE 77; RESP 18; TEMP 36.7; O2SAT 99
[2019-12-03 16:42] LABS: Glucose Point of Care 159 (65-105)
--- NOTE | 2019-12-03 18:10 | PC.NURSE ---
1810 Spoke to Megan LARSON from [facility]. Do to the limit visitors due to COVID, the [facility] van will cotton picker operator the patient at [phone]. Both daughters, Dr Majano, and Amadeo the [employer] are aware of the situation.
[2019-12-03 22:00] VITALS: BP 160/67; PULSE 76; RESP 20; TEMP 36.9; O2SAT 92
[2019-12-03] MEDS: ENOXAPARIN 40 MG/0.4 ML SYRINGE SUB-Q (23:05)
[2019-12-04 06:00] VITALS: BP 139/78; PULSE 73; RESP 20; TEMP 36.6; O2SAT 99
[2019-12-04] MEDS: FAMOTIDINE 20 MG/2 ML VIAL IV PUSH (07:50)
[2019-12-04] MEDS: PANTOPRAZOLE SOD SESQUIHYDRATE 20 MG TAB PO (07:50)
[2019-12-04 08:01] LABS: Glucose Point of Care 96 (65-105)
[2019-12-04 08:15] VITALS: RESP 20; O2SAT 99
== END 2019-12-04 08:30 | DRG 60 ==
LOC: ANHED 19:32 → ANH3MED 19:49
PROVIDERS: Emergency Medicine; Emergency Medicine Emergency Medical Services; Internal Medicine; Physician Assistant; Admitting Provider Family Medicine; Emergency Provider Emergency Medicine; PCP Family Medicine; Visit Provider Family Medicine
DX: G35 Multiple sclerosis (principal); Z20.828 Contact with and (suspected) exposure to other viral communicable diseases; M54.9 Dorsalgia, unspecified; G89.29 Other chronic pain; K59.00 Constipation, unspecified; R32 Unspecified urinary incontinence; R22.43 Localized swelling, mass and lump, lower limb, bilateral; T38.0X5A Adverse effect of glucocorticoids and synthetic analogues, initial encounter; Z87.891 Personal history of nicotine dependence
CPT/HCPCS: 36415; 51701; 71045; 72125; 72131; 80048; 80053; 80076; 81003; 82550; 83735; 85025; 85027; 86140; 87635; 96365; 96372; 96375; 96376; 97110; 97162; 97165; 97530; 97535; 99285; A9270; C9803; G0378; J0131; J1650; J1815; J2930; J7120; U0003